=== PATIENT | female | born 1955 | race American Indian/Alaskan Native ===

== ENCOUNTER 2020-01-17 11:48 | Emergency (ER) | payer MEDICAID ==
[~2020-01-17] VITALS: Ht 167.6 cm; Wt 91.0 kg
[~2020-01-17 11:48] MED LIST: CELE-193 PO; DES150T PO; ESOM40CA PO; FENT1PAT11 TD; OXYB15TA PO; OXYC-658 PO; [UNRECOGNIZED DRUG - CODE] PO
[2020-01-17] MEDS ORDERED: CETI10CA PO (12:38)
[2020-01-17] MEDS ORDERED: PERM60CR19 TOP (12:38)
[2020-01-17] MEDS ORDERED: DIPH25CA83 PO (12:38)
[2020-01-17] MEDS ORDERED: TRIA15OI9 TOP (12:44)
[2020-01-17 13:03] VITALS: BP 170/86
== END 2020-01-17 13:05 | disposition home or self-care (01) ==
LOC: ER 11:48
DX: R21 Rash and other nonspecific skin eruption (principal); J44.9 Chronic obstructive pulmonary disease, unspecified; Z79.899 Other long term (current) drug therapy; Z88.0 Allergy status to penicillin; Z91.013 Allergy to seafood
CPT/HCPCS: 99283

== ENCOUNTER 2021-10-06 00:22 | Emergency (ER) | payer MEDICAID ==
[~2021-10-06] VITALS: Ht 167.6 cm; Wt 95.5 kg
[~2021-10-06 00:22] MED LIST changes: +CETI10CA PO; +DIPH25CA83 PO; +TRIA15OI9 TOP
[2021-10-06] MEDS ORDERED: metoclopramide 5 mg/ml inj IM ONE (01:30)
[2021-10-06] MEDS ORDERED: diphenhydrAMINE 50 mg/ml inj IM ONE (01:30)
[2021-10-06] MEDS ORDERED: oxyCODONE/APAP 5-325mg tablet PO ONE (01:30)
[2021-10-06] MEDS ORDERED: ketorolac trometh. 30mg/ml inj. IM ONE (01:30)
[2021-10-06] MEDS ORDERED: diazepam 5mg tablet PO ONE (01:30)
[2021-10-06 03:21] VITALS: BP 151/90
[2021-10-06] MEDS ORDERED: PER5325T PO (04:27)
== END 2021-10-06 05:35 | disposition home or self-care (01) ==
LOC: ER 00:23
DX: M54.50 Low back pain, unspecified (principal); R26.2 Difficulty in walking, not elsewhere classified; J44.9 Chronic obstructive pulmonary disease, unspecified; G89.29 Other chronic pain; Z88.0 Allergy status to penicillin; Z79.899 Other long term (current) drug therapy
CPT/HCPCS: 96372; 99284; J1200; J1885; J2765

== ENCOUNTER 2021-10-12 23:22 | Inpatient (IN) | payer MEDICAID ==
[~2021-10-12] VITALS: Ht 167.6 cm; Wt 80.0 kg
[~2021-10-12 23:22] MED LIST changes: +PER5325T PO
[2021-10-12] MEDS ORDERED: dexamethasone sod phosphate 10mg/ml inj IV STA (23:51)
[2021-10-13] VITALS (17 sets, daily range): BP systolic 124–160; BP diastolic 62–91
[2021-10-13] MEDS ORDERED: ipratropium/albuterol 3ml nebule NEB PRN (00:05)
[2021-10-13 00:46] LABS: ALBUMIN 2.5 G/DL (3.4-5.0); ANION GAP 12 (8-16); BILIRUBIN,TOTAL 1.2 MG/DL (0.1-1.0); BLOOD UREA NITROGEN 13 MG/DL (7-18); BUN/CREATININE RATIO 16.5 (6.6-38.0); CALCIUM 7.8 MG/DL (8.5-10.1); CHLORIDE 105 MMOL/L (99-107); CREATININE 0.79 MG/DL (0.40-0.90); GLUCOSE 195 MG/DL (70-104); POTASSIUM 3.7 MMOL/L (3.5-5.1); SODIUM 141 MMOL/L (135-145); TOTAL CARBON DIOXIDE 24.3 MMOL/L (24-32); TOTAL PROTEIN 6.7 G/DL (6.4-8.2); eGFR 73 ML/MIN
[2021-10-13 00:47] LABS: ALANINE AMINOTRANSFERASE 23 U/L (12-78); ALBUMIN/GLOBULIN RATIO 0.6 (1.1-1.5); ALKALINE PHOSPHATASE 108 IU/L (46-116); ASPARTATE AMINO TRANSFERASE 25 U/L (10-37)
[2021-10-13 01:03] LABS: BASOPHILS % (AUTO) 0.5 % (0-1); EOSINOPHILS % (AUTO) 0.5 % (0-6); LYMPHOCYTES # (AUTO) 0.7 X10'3 (1.1-4.8); LYMPHOCYTES % (AUTO) 8.4 % (21-51); MEAN CORPUSCULAR HGB CONC 29.5 g/dL (33.0-36.5); MEAN CORPUSCULAR VOLUME 57.5 FL (78-98); MEAN PLATELET VOLUME 8.1 FL (7.4-10.4); MONOCYTES # (AUTO) 0.6 X10'3 (0-0.9); MONOCYTES % (AUTO) 7.5 % (2-12); NEUTROPHILS # (AUTO) 6.5 X10'3 (1.8-7.7); NEUTROPHILS % (AUTO) 83.1 % (42-75); PLATELET COUNT 176 X10'3 (140-440); RED BLOOD COUNT 3.47 X10'6 (4.20-5.60); RED CELL DISTRIBUTION WIDTH 22.3 % (11.5-14.5); WHITE BLOOD COUNT 7.8 X10'3 (4.5-11.0)
[2021-10-13 01:08] LABS: HEMOGLOBIN 5.9 g/dl (12.0-16.0)
--- NOTE | 2021-10-13 01:22 | NUR ---
covid swab obtained and sent to lab before order Dc'd
[2021-10-13] MEDS ORDERED: pantoprazole IV 40 MG in dextrose 5%-water 100 ML IV ONE (02:18)
[2021-10-13] MEDS ORDERED: magnesium hydroxide 30ml (MOM) UD suspension PO PRN (02:30)
[2021-10-13] MEDS ORDERED: mag hydrox/Alum hydrox/simeth 30ml oral suspension PO PRN (02:30)
[2021-10-13] MEDS ORDERED: ondansetron 4mg rapidly disintigrating tab PO PRN (02:30)
[2021-10-13] MEDS ORDERED: acetaminophen 650mg rectal suppository RC PRN (02:30)
[2021-10-13] MEDS ORDERED: diphenhydrAMINE 50 mg/ml inj IV PRN (02:30)
[2021-10-13] MEDS ORDERED: bisacodyl 10mg suppository rectal RC PRN (02:30)
[2021-10-13] MEDS ORDERED: acetaminophen 325mg tablet PO PRN ×2 (02:30)
[2021-10-13 02:46] LABS: MAGNESIUM 1.7 MG/DL (1.5-2.4); PHOSPHORUS 2.5 MG/DL (2.3-4.5)
[2021-10-13 03:12] LABS: LIPASE < 50 U/L (73-393)
[2021-10-13 03:22] LABS: PLATELET ESTIMATE NORMAL
[2021-10-13 03:23] LABS: ANISOCYTOSIS 3+; LARGE PLATELETS FEW; POLYCHROMASIA 1+
--- NOTE | 2021-10-13 03:23 | NUR ---
two RN check at BS for blood - scanned unit per protocol. pt tolerating well. patient had a XL BM in the commode prior to infusion.
[2021-10-13 03:24] LABS: ELLIPTOCYTES FEW; MICROCYTOSIS 3+; TEAR DROP CELLS FEW
[2021-10-13 03:44] LABS: PARTIAL THROMBOPLASTIN TIME 22 SECONDS (22-32)
[2021-10-13] MEDS: normal saline 1000ml 1,000 ML IV SCH ×3 (04:41→22:30)
[2021-10-13] MEDS ORDERED: octreotide inj. 500 MCG in normal saline 100ml IV soln 100 ML IV SCH (05:15)
[2021-10-13] MEDS: HYDROcodone/acetaminophen 5mg/325mg tablet PO PRN ×3 (05:43→21:08)
[2021-10-13] MEDS: pantoprazole IV 40 MG in dextrose 5%-water 100 ML IV SCH ×4 (06:00→21:01)
--- NOTE | 2021-10-13 07:09 | NUR ---
Patient cleaned of urine incontinence and given Depends per request. Bedding and gown changed.
[2021-10-13] MEDS ORDERED: ATRIN PO (07:41)
[2021-10-13] MEDS ORDERED: ALBU17AE26 IH (07:41)
[2021-10-13] MEDS ORDERED: FLUT1BLS13 INH (07:41)
[2021-10-13] MEDS ORDERED: GABA-534 PO (07:41)
[2021-10-13] MEDS ORDERED: DIPH25CA83 PO (07:42)
[2021-10-13] MEDS: docusate sod 100mg capsule PO SCH ×2 (08:00→20:00)
[2021-10-13] MEDS ORDERED: levoFLOXACIN-Levaquin 750MG/D5 150 ML IV SCH (08:00)
[2021-10-13] MEDS ORDERED: magnesium 4gm in 100ml NS 100 ML IV PRN (08:45)
[2021-10-13] MEDS ORDERED: potassium Cl 40MEQ/1/2NS 520ml 520 ML IV PRN (08:45)
[2021-10-13] MEDS ORDERED: magnesium Cl slow-release 64mg tablet PO PRN (08:45)
[2021-10-13] MEDS ORDERED: potassium Cl 20 mEq SR tablet PO PRN ×2 (08:45)
[2021-10-13 10:25] LABS: HEMATOCRIT 24.1 % (35.0-45.0); HEMOGLOBIN 7.4 g/dl (12.0-16.0); MEAN CORPUSCULAR HEMOGLOBIN 19.6 PG (27.0-31.0); MEAN CORPUSCULAR HGB CONC 30.9 g/dL (33.0-36.5); MEAN CORPUSCULAR VOLUME 63.4 FL (78-98); MEAN PLATELET VOLUME 8.3 FL (7.4-10.4); PLATELET COUNT 183 X10'3 (140-440); RED BLOOD COUNT 3.79 X10'6 (4.20-5.60); WHITE BLOOD COUNT 5.8 X10'3 (4.5-11.0)
--- NOTE | 2021-10-13 11:38 | NUR ---
Pt. taken to GI lab for EGD.
[2021-10-13] MEDS: ondansetron/PF 4mg/2ml inj IV PRN (11:43)
[2021-10-13] MEDS ORDERED: ondansetron/PF 4mg/2ml inj ONE (11:43)
[2021-10-13] MEDS ORDERED: fentaNYL/PF 50MCG/1 ML 2ML syringe ONE (11:45)
[2021-10-13] MEDS ORDERED: MIDAZolam 1 MG/ML 5ML VIAL ONE (11:45)
[2021-10-13] MEDS ORDERED: LIDOcaine Viscous 15ml cup ONE (12:20)
[2021-10-13] MEDS ORDERED: fluconazole 100mg tablet PO ONE (13:14)
--- NOTE | 2021-10-13 13:49 | NUR ---
Pt. back on floor, ej relayed from report.
[2021-10-13 14:52] LABS: HEMATOCRIT 24.1 % (35.0-45.0); HEMOGLOBIN 7.4 g/dl (12.0-16.0); MEAN CORPUSCULAR HEMOGLOBIN 19.6 PG (27.0-31.0); MEAN CORPUSCULAR HGB CONC 30.6 g/dL (33.0-36.5); MEAN CORPUSCULAR VOLUME 63.8 FL (78-98); MEAN PLATELET VOLUME 8.2 FL (7.4-10.4); PLATELET COUNT 173 X10'3 (140-440); RED BLOOD COUNT 3.77 X10'6 (4.20-5.60); RED CELL DISTRIBUTION WIDTH 29.3 % (11.5-14.5); WHITE BLOOD COUNT 5.4 X10'3 (4.5-11.0)
--- NOTE | 2021-10-13 15:01 | NUR ---
PtLeticia montiel started tender, possibly infiltrated. Paged PICC RN for PIV placement
--- NOTE | 2021-10-13 15:25 | NUR ---
PAGER ID: [phone] MESSAGE: Cintia Lomeli [id number] Pt. has dry hacking cough. Can she have orders for tesselon pearls? cough syrup? thank you Zoie [phone]
--- NOTE | 2021-10-13 15:45 | NUR ---
PAGER ID: [phone] MESSAGE: Cintia Lomeli [id number] Pt. also had A1C pop up for 6.9- do you want hyperglycemia protocol? Zoie [phone]
--- NOTE | 2021-10-13 15:50 | NUR ---
DM Consult: Pt hx T2DM A1C 6.9% per EMR; appropriate per ADA guidelines. Addendum: 10/13/21 at [address] Amended: Links added.
[2021-10-13] MEDS ORDERED: dextrose 50%-water 50ml dispensing syringe IV PRN ×2 (16:00)
[2021-10-13] MEDS ORDERED: glucagon, human recombinant 1mg kit SUBCUT PRN (16:00)
[2021-10-13] MEDS ORDERED: dextrose ORAL solution 15 GM/59 ML bottle PO PRN ×2 (16:00)
[2021-10-13] MEDS ORDERED: MESSAGE TO PHARMACY PO ONE (16:00)
[2021-10-13] MEDS ORDERED: insulin Lispro (HumaLOG) vial - multi-dose SQ SCH (16:00)
[2021-10-13] MEDS: levoFLOXACIN-Levaquin 750MG/D5 150 ML IV SCH (16:55)
[2021-10-13] MEDS: benzonatate 100mg capsule PO PRN (16:59)
--- NOTE | 2021-10-13 18:18 | NUR ---
GAVE REPORT TO GABI CABRERA.
--- NOTE | 2021-10-13 18:28 | NUR ---
Patient in room MED 319. I have received report from DANA CABRERA and had the opportunity to ask questions and assume patient care.
--- NOTE | 2021-10-13 18:58 | NUR ---
PATIENT REFUSING INSULIN DESPITE VERBAL AND WRITTEN EDUCATION. WILL NOTIFY MD BLOOD GLUCOSE IS CURRENTLY 302
--- NOTE | 2021-10-13 19:17 | NUR ---
319B STEVIE WALKER-REFUSING INSULIN ADMINISTRATION DESPITE BLOOD GLUCSE OF 302-VERBAL AND WRITTEN INFORMATION GIVEN TO PATIENT. PLEASE CALL GABI [phone], THX
[2021-10-13 19:20] LABS: HEMATOCRIT 22.4 % (35.0-45.0); MEAN CORPUSCULAR HEMOGLOBIN 19.4 PG (27.0-31.0); MEAN CORPUSCULAR HGB CONC 30.5 g/dL (33.0-36.5); MEAN CORPUSCULAR VOLUME 63.8 FL (78-98); MEAN PLATELET VOLUME 8.2 FL (7.4-10.4); PLATELET COUNT 166 X10'3 (140-440); RED CELL DISTRIBUTION WIDTH 28.1 % (11.5-14.5); WHITE BLOOD COUNT 5.5 X10'3 (4.5-11.0)
[2021-10-13 19:27] LABS: HEMOGLOBIN 6.8 g/dl (12.0-16.0)
--- NOTE | 2021-10-13 19:28 | NUR ---
319B STEVIE WALKER-CRITICAL HEMOGLOBIN 6.8 JUST RECIEVED FROM LAB. PLEASE CALL GABI [phone] WITH ORDERS.
--- NOTE | 2021-10-13 19:57 | NUR ---
DR. HERRERA AT BEDSIDE IN PATIENT ROOM DISCUSSING DIABETIC EDUCATION, BLOOD GLUCOSE CONTROL, POSSIBLE ETOH USAGE/CIRRHOSIS, FATTY LIVER, AND HEMOGLOBIN LEVELS. NEEDS BLOOD TRANSFUSION. METFORMIN ORDERED , INSULIN DISCONTINUED. BLOOD GLUCOSE CHECKS BID INSTEAD OF ACHS. ONE UNIT BLOOD TO BE TRANSFERREDPER PROTOCOL. ROSI CABRERA
[2021-10-13] MEDS: K and/or MAG REPLACEMENT MC SCH (20:00)
[2021-10-13] MEDS: guaiFENesin 200 MG/10 ML oral syrup UD cup PO PRN (20:15)
[2021-10-13] MEDS ORDERED: insulin glargine (Lantus) pen - multi-dose SQ SCH (21:00)
[2021-10-13] MEDS: albuterol 2.5 MG/3 ML nebule NEB SCH (21:04)
[2021-10-13] MEDS: temazepam 15mg capsule PO PRN (21:08)
[2021-10-13] MEDS: diphenhydrAMINE 25mg capsule PO PRN (21:10)
[2021-10-14] VITALS (11 sets, daily range): BP systolic 132–169; BP diastolic 62–88
--- NOTE | 2021-10-14 00:19 | NUR ---
ORDERED CHEK BLOOD GLUCOSE BID, ORAL GLYCEMICS ORDERED START AM 10/14, CARB CONTROL DIET OK. ARANDA
[2021-10-14] MEDS: benzonatate 100mg capsule PO PRN ×4 (00:55→22:16)
[2021-10-14] MEDS: pantoprazole IV 40 MG in dextrose 5%-water 100 ML IV SCH ×4 (01:54→15:58)
[2021-10-14] MEDS: albuterol 2.5 MG/3 ML nebule NEB SCH (02:00)
[2021-10-14] MEDS ORDERED: albuterol 2.5 MG/3 ML nebule NEB SCH (02:00)
[2021-10-14] MEDS ORDERED: albuterol 2.5 MG/3 ML nebule NEB PRN (06:00)
[2021-10-14] MEDS: guaiFENesin 200 MG/10 ML oral syrup UD cup PO PRN ×2 (06:07→15:57)
[2021-10-14] MEDS: HYDROcodone/acetaminophen 5mg/325mg tablet PO PRN ×3 (06:11→22:20)
[2021-10-14] MEDS: metFORMIN 500mg tablet PO SCH ×3 (06:12→15:58)
[2021-10-14 06:20] LABS: BASOPHILS % (AUTO) 0.1 % (0-1); EOSINOPHILS % (AUTO) 0 % (0-6); HEMATOCRIT 26.3 % (35.0-45.0); HEMOGLOBIN 8.1 g/dl (12.0-16.0); LYMPHOCYTES # (AUTO) 0.7 X10'3 (1.1-4.8); MEAN CORPUSCULAR HEMOGLOBIN 20.6 PG (27.0-31.0); MEAN CORPUSCULAR HGB CONC 30.6 g/dL (33.0-36.5); MEAN CORPUSCULAR VOLUME 67.4 FL (78-98); MEAN PLATELET VOLUME 8.1 FL (7.4-10.4); MONOCYTES # (AUTO) 0.7 X10'3 (0-0.9); MONOCYTES % (AUTO) 10.9 % (2-12); NEUTROPHILS # (AUTO) 5.3 X10'3 (1.8-7.7); PLATELET COUNT 155 X10'3 (140-440); RED BLOOD COUNT 3.91 X10'6 (4.20-5.60); RED CELL DISTRIBUTION WIDTH 30.4 % (11.5-14.5); WHITE BLOOD COUNT 6.7 X10'3 (4.5-11.0)
[2021-10-14 06:42] LABS: ALANINE AMINOTRANSFERASE 25 U/L (12-78); ALBUMIN 2.6 G/DL (3.4-5.0); ALBUMIN/GLOBULIN RATIO 0.6 (1.1-1.5); ALKALINE PHOSPHATASE 101 IU/L (46-116); ANION GAP 9 (8-16); ASPARTATE AMINO TRANSFERASE 22 U/L (10-37); BILIRUBIN,TOTAL 1.1 MG/DL (0.1-1.0); BLOOD UREA NITROGEN 19 MG/DL (7-18); BUN/CREATININE RATIO 21.6 (6.6-38.0); CALCIUM 8.1 MG/DL (8.5-10.1); CHLORIDE 105 MMOL/L (99-107); CREATININE 0.88 MG/DL (0.40-0.90); GLUCOSE 232 MG/DL (70-104); PHOSPHORUS 1.9 MG/DL (2.3-4.5); POTASSIUM 4.5 MMOL/L (3.5-5.1); SODIUM 135 MMOL/L (135-145); TOTAL CARBON DIOXIDE 21.5 MMOL/L (24-32); TOTAL PROTEIN 6.8 G/DL (6.4-8.2); eGFR 65 ML/MIN
[2021-10-14 06:51] LABS: ANISOCYTOSIS 3+; MICROCYTOSIS 2+; PLATELET ESTIMATE NORMAL
[2021-10-14 06:52] LABS: ELLIPTOCYTES FEW; HYPOCHROMASIA 1+; POLYCHROMASIA 1+; SCHISTOCYTES FEW; TEAR DROP CELLS FEW
[2021-10-14] MEDS: docusate sod 100mg capsule PO SCH ×2 (08:00→19:22)
[2021-10-14] MEDS: K and/or MAG REPLACEMENT MC SCH ×2 (08:00→19:09)
[2021-10-14] MEDS: fluconazole 100mg tablet PO SCH (08:00)
[2021-10-14] MEDS: normal saline 1000ml 1,000 ML IV SCH (09:17)
[2021-10-14] MEDS: diphenhydrAMINE 25mg capsule PO PRN ×3 (09:17→22:18)
[2021-10-14 11:55] LABS: HEMATOCRIT 27.9 % (35.0-45.0); HEMOGLOBIN 8.6 g/dl (12.0-16.0); MEAN CORPUSCULAR HEMOGLOBIN 20.5 PG (27.0-31.0); MEAN CORPUSCULAR HGB CONC 30.7 g/dL (33.0-36.5); MEAN CORPUSCULAR VOLUME 66.8 FL (78-98); MEAN PLATELET VOLUME 8.1 FL (7.4-10.4); PLATELET COUNT 157 X10'3 (140-440); RED BLOOD COUNT 4.18 X10'6 (4.20-5.60); RED CELL DISTRIBUTION WIDTH 31.2 % (11.5-14.5); WHITE BLOOD COUNT 8.5 X10'3 (4.5-11.0)
[2021-10-14] MEDS ORDERED: potassium phosphate inj 30 MMOL in normal saline 500ml IV soln 500 ML IV ONE (12:05)
[2021-10-14] MEDS ORDERED: amLODIPine 5mg tablet PO ONE (15:15)
[2021-10-14] MEDS: levoFLOXACIN-Levaquin 750MG/D5 150 ML IV SCH (15:58)
[2021-10-14] MEDS: morphine 2 MG/ML inj. syringe IV PRN ×2 (16:15→20:26)
--- NOTE | 2021-10-14 18:24 | NUR ---
GAVE REPORT TO PRUDENCE RN
--- NOTE | 2021-10-14 18:47 | NUR ---
Patient in room MED 319. I have received report from DANA CABRERA and had the opportunity to ask questions and assume patient care.
[2021-10-14 18:59] LABS: CLARITY,URINE CLEAR (Clear); COLOR,URINE YELLOW (Yellow); GLUCOSE, URINE NEGATIVE (Neg); KETONES,URINE NEGATIVE (Neg); LEUKOCYTE ESTERASE ,URINE NEGATIVE (Neg); NITRITES, URINE NEGATIVE (Neg); OCCULT BLOOD,URINE NEGATIVE (Neg); PROTEIN,URINE NEGATIVE (Neg); UROBILINOGEN,URINE 0.2 E.U/dL (0.2-1.0)
[2021-10-14 19:02] LABS: UA COLLECTION TYPE NON-SPECIFIED
[2021-10-14 19:05] LABS: URINE AMPHETAMINE SCREEN POSITIVE (Neg); URINE BARBITUATE SCREEN NEGATIVE (Neg); URINE BENZODIAZEPINES SCREEN POSITIVE (Neg); URINE CANNABINOID SCREEN NEGATIVE (Neg); URINE COCAINE SCREEN NEGATIVE (Neg); URINE METHADONE SCREEN NEGATIVE (Neg); URINE OPIATE SCREEN POSITIVE (Neg); URINE PHENCYCLIDINE SCREEN NEGATIVE (Neg)
[2021-10-14] MEDS: pantoprazole 40mg Tablet.DR PO SCH (19:21)
[2021-10-14] MEDS: ondansetron/PF 4mg/2ml inj IV PRN (20:26)
--- NOTE | 2021-10-14 21:18 | NUR ---
Patient in room MED 319. I have received report from IDRIS CABRERA and had the opportunity to ask questions and assume patient care.
--- NOTE | 2021-10-14 21:31 | NUR ---
Problems reprioritized. Patient report given, questions answered & plan of care reviewed with GABI CABRERA.
[2021-10-14] MEDS: temazepam 15mg capsule PO PRN (22:16)
[2021-10-15 02:00] VITALS: BP 116/74
[2021-10-15] MEDS: benzonatate 100mg capsule PO PRN ×2 (04:54→11:28)
[2021-10-15] MEDS: diphenhydrAMINE 25mg capsule PO PRN (04:54)
[2021-10-15] MEDS: guaiFENesin 200 MG/10 ML oral syrup UD cup PO PRN (04:55)
[2021-10-15] MEDS: HYDROcodone/acetaminophen 5mg/325mg tablet PO PRN (04:55)
[2021-10-15 06:00] VITALS: BP 152/60
--- NOTE | 2021-10-15 06:31 | NUR ---
Problems reprioritized. Patient report given, questions answered & plan of care reviewed with JASPAL CABRERA.
--- NOTE | 2021-10-15 07:00 | NUR ---
Patient in room MED 319. I have received report from RICK ASHLEY, and had the opportunity to ask questions and assume patient care.
[2021-10-15 07:03] LABS: BASOPHILS % (AUTO) 0.2 % (0-1); EOSINOPHILS % (AUTO) 0.2 % (0-6); HEMOGLOBIN 8.2 g/dl (12.0-16.0); LYMPHOCYTES # (AUTO) 1.2 X10'3 (1.1-4.8); LYMPHOCYTES % (AUTO) 13.9 % (21-51); MEAN CORPUSCULAR HEMOGLOBIN 20.9 PG (27.0-31.0); MEAN CORPUSCULAR HGB CONC 31.4 g/dL (33.0-36.5); MEAN CORPUSCULAR VOLUME 66.6 FL (78-98); MEAN PLATELET VOLUME 8.1 FL (7.4-10.4); MONOCYTES # (AUTO) 0.8 X10'3 (0-0.9); MONOCYTES % (AUTO) 9.1 % (2-12); NEUTROPHILS # (AUTO) 6.6 X10'3 (1.8-7.7); NEUTROPHILS % (AUTO) 76.6 % (42-75); PLATELET COUNT 143 X10'3 (140-440); RED CELL DISTRIBUTION WIDTH 31.1 % (11.5-14.5); WHITE BLOOD COUNT 8.7 X10'3 (4.5-11.0)
[2021-10-15 07:22] LABS: ALANINE AMINOTRANSFERASE 35 U/L (12-78); ALBUMIN 2.7 G/DL (3.4-5.0); ALBUMIN/GLOBULIN RATIO 0.6 (1.1-1.5); ALKALINE PHOSPHATASE 115 IU/L (46-116); ANION GAP 11 (8-16); ASPARTATE AMINO TRANSFERASE 56 U/L (10-37); BILIRUBIN,TOTAL 1.1 MG/DL (0.1-1.0); BLOOD UREA NITROGEN 25 MG/DL (7-18); CHLORIDE 106 MMOL/L (99-107); GLUCOSE 182 MG/DL (70-104); MAGNESIUM 1.8 MG/DL (1.5-2.4); PHOSPHORUS 2.4 MG/DL (2.3-4.5); POTASSIUM 4.3 MMOL/L (3.5-5.1); SODIUM 139 MMOL/L (135-145); TOTAL CARBON DIOXIDE 21.9 MMOL/L (24-32); eGFR 56 ML/MIN
[2021-10-15 07:57] LABS: ANISOCYTOSIS 3+; ELLIPTOCYTES 1+; HYPOCHROMASIA 1+; MICROCYTOSIS 2+; PLATELET ESTIMATE NORMAL; TEAR DROP CELLS 2+
[2021-10-15 07:58] LABS: POLYCHROMASIA 1+; STOMATOCYTES FEW
[2021-10-15] MEDS: K and/or MAG REPLACEMENT MC SCH (08:00)
[2021-10-15] MEDS: pantoprazole 40mg Tablet.DR PO SCH (08:00)
[2021-10-15] MEDS: metFORMIN 500mg tablet PO SCH ×2 (08:00→11:28)
[2021-10-15] MEDS ORDERED: amLODIPine 5mg tablet PO SCH (08:00)
[2021-10-15] MEDS: docusate sod 100mg capsule PO SCH (08:00)
[2021-10-15] MEDS: fluconazole 100mg tablet PO SCH (08:01)
--- NOTE | 2021-10-15 08:52 | NUR ---
PAGE SENT PAGER ID: [phone] MESSAGE: 319B, STEVIE WALKER, POSITIVE NASAL MRSA. THANK YOU, JASPAL [phone]
[2021-10-15 10:00] VITALS: BP 151/64
--- NOTE | 2021-10-15 15:56 | NUR ---
PAGE SENT PAGER ID: [phone] MESSAGE: 319B, STEVIE WALKER, PT LEFT AMA. THANK YOU, JASPAL [phone]
--- NOTE | 2021-10-15 15:56 | NUR ---
PT LEFT AMA. PT SIGNED PAPER WORK, NOTIFIED, OCCURRENCE REPORT SUBMITTED.
== END 2021-10-15 15:30 | disposition left against medical advice (07) | DRG 241 ==
LOC: ER 23:22 → ED HOLD 10-13 02:33 → MED 3N 10-13 09:20
PROVIDERS: ADMIT Family Medicine; ATTEND Family Medicine
PROC: 0DB68ZX Excision of Stomach, Via Natural or Artificial Opening Endoscopic, Diagnostic (ICD-10-PCS; principal; 2021-10-13)
PROC: 30233N1 Transfusion of Nonautologous Red Blood Cells into Peripheral Vein, Percutaneous Approach (ICD-10-PCS; 2021-10-13)
DX: K26.0 Acute duodenal ulcer with hemorrhage (principal); I50.33 Acute on chronic diastolic (congestive) heart failure; B37.81 Candidal esophagitis; J18.9 Pneumonia, unspecified organism; K76.6 Portal hypertension; I11.0 Hypertensive heart disease with heart failure; J44.0 Chronic obstructive pulmonary disease with (acute) lower respiratory infection; Z20.822 Contact with and (suspected) exposure to COVID-19; K74.60 Unspecified cirrhosis of liver; D62 Acute posthemorrhagic anemia; M54.50 Low back pain, unspecified; Z53.29 Procedure and treatment not carried out because of patient's decision for other reasons; E11.9 Type 2 diabetes mellitus without complications; R16.1 Splenomegaly, not elsewhere classified; F17.200 Nicotine dependence, unspecified, uncomplicated; G89.4 Chronic pain syndrome; K29.70 Gastritis, unspecified, without bleeding; Z79.891 Long term (current) use of opiate analgesic; Z91.19 Patient's noncompliance with other medical treatment and regimen; Z88.8 Allergy status to other drugs, medicaments and biological substances; Z88.0 Allergy status to penicillin; Z91.013 Allergy to seafood; Z79.899 Other long term (current) drug therapy
CPT/HCPCS: 36415; 36430; 43239; 71045; 71250; 74176; 80053; 80305; 81003; 82948; 83036; 83690; 83735; 83880; 84100; 84484; 85008; 85025; 85027; 85610; 85730; 86885; 86900; 86901; 86920; 87081; 87635; 93005; 94640; 94760; 99152; 99291; A4620; C9113; C9803; G0378; J1100; J1815; J1956; J2250; J2270; J2354; J2405; J3010; J3490; J7030; J7040; J7060; P9016; Q0163

== ENCOUNTER 2025-10-20 20:52 | Emergency (ER) | payer MEDICARE, MEDICAID ==
[~2025-10-20] VITALS: Ht 167.6 cm; Wt 70.4 kg
[~2025-10-20 20:52] MED LIST changes: +ALBU18HF2 PO; -CELE-193 PO; -CETI10CA PO; -DES150T PO; -DIPH25CA83 PO; -ESOM40CA PO; -FENT1PAT11 TD; +FLUT1DIS10 IH; +GABA-535 PO; +OXYB-58 PO; -OXYB15TA PO; -OXYC-658 PO; -PER5325T PO; -TRIA15OI9 TOP; -[UNRECOGNIZED DRUG - CODE] PO
--- NOTE | 2025-10-21 00:31 | Physician Documentation ---
History of Present Illness ~ Chief Complaint: Itching Stated Complaint: BUG BITES Time Seen by MD: 00:25 OK to notify your PCP?: Yes Primary Medical Doctor: BRENNON Source: patient, RN/, RN notes reviewed, old records Mode of Arrival: POV Exam Limitations: no limitations HPI This patient denies any drug abuse. She has multiple faye on her body from either skin popping or scratching. Patient states that she has been bugs. She has a picture showing lots of black lines and bugs however I do not see any bugs on the picture. She states her all over her back there are no signs of any bugs on her. Patient is requesting a ride home. She is more concerned about transportation rather than her medical complaints. She is now here for evaluation and care Medication Reconciliation Allergies: Coded Allergies: Penicillins (Verified Allergy, Severe, ANAPHYLACTIC, 07/16/23) shellfish derived (Verified Allergy, Severe, ANAPHYLAXIS, 07/16/23) Opioids - Morphine Analogues (Verified Adverse Reaction, Mild, N/V NEEDS BENADRYL PRE-TREATMENT, 07/16/23) meperidine (Verified Adverse Reaction, Mild, N/V, 07/16/23) Uncoded Allergies: seafood (Allergy, Unknown, 05/16/23) all seafood Scheduled Fluticasone/Salmeterol (Advair 250-50 Diskus), 1 PUFF IH BID, (Reported) Gabapentin (Gabapentin), 1 CAP PO TID, (Reported) Oxybutynin Chloride (Ditropan Xl), 1 TAB PO DAILY, (Reported) Permethrin 5% Cream* (Elimite 5% Cream*), 1 APPLIC TOP ONCE Scheduled PRN Albuterol Sulfate (Ventolin Hfa), 2 PUFFS PO Q4H PRN for SOB or wheezing, (Reported) Hydroxyzine Hcl* (Atarax*), 1 TAB PO Q8H PRN for ITCHING Past Medical History Past Medical History: Asthma, COPD, *GI/HEPATOBILIARY*, Cirrohsis, GI Bleed, Chronic Back Pain Past Surgical History: noncontributory Patient History: Patient reports no known family medical history. Alcohol Use: None Drug Use: methamphetamine Occupation: unemployed Review of Systems All Other Systems at this time: Reviewed and Negative Physical Exam Vital Signs: RN Vital Signs have been reviewed: Yes, Temperature: 98.7, Source: Oral, Heart Rate: 99, Respiratory Rate: 20, BP: 145/71, Pulse Oximetry: 99, Weight: 70.400 Physical Exam General: The patient is well developed, well nourished, nontoxic appearing and is in no acute distress. Anxious Skin: [place], warm and dry with no rashes. HEENT: Head was normocephalic and atraumatic. Eyes - pupils equal, round, reactive to light and accommodation. Extraocular movements were intact. Conjun ctivae were nonicteric. The mouth and oropharynx were clear with moist mucous membranes. Neck: Supple and nontender. Chest: Clear to auscultation bilaterally without wheezes, rales or rhonchi. Heart: Rate regular and rhythmic. S1, S2. No murmurs. Abdomen: Soft, nontender and nondistended. Positive bowel sounds. Extremities: No cyanosis, clubbing or edema. The patient moves all extremities. Pulses were equal and symmetric. No signs of bedbugs lice Psychologic: The patient was oriented to person, place and time. Progress Results/Orders Reviewed/noted all lab results: Yes Results/Orders Completed Orders - ELIJAH BUCK MD Hydroxyzine Tablet (Atarax Tablet) (10/21/25 00:40) Vital Signs 10/20/25 21:49 Temp 98.7 Pulse 99 Resp 20 B/P (MAP) 145/71 Pulse Ox 99 Laboratory Tests Test 10/20/25 21:58 Glucometer 463 *H Re-Evaluation Re-Evaluation : Re-Evaluation: Unchanged Progress Patient was seen and examined. Patient is given reassurance. Patient has a history of methamphetamine abuse and skin damage to suggest prior complications due to methamphetamine. Patient is concerned about itching as well as bedbugs or lice. I did not see any present she states she put some chemicals in her house to take care of the bugs. I did not see any ones present at this time patient will be given Elimite and discharged home. She denies any current methamphetamine abuse. As far as itching she will be given hydroxyzine as well Medical Decision Making Additional information obtaine: old records Findings Patient has no signs of any bugs but was treated may be having sequelae of chronic methamphetamine abuse which the patient denies Differential Dx:Considerations: Include: Atopic dermatitis, Candidiasis, Contact dermatitis, Drug reaction, Pediculosis, Pityriasis rosea, Psoriaisis, RMSF, Scabies, Tinea, Urticaria, Varicella, Viral exanthema, Other Departure Disposition: HOME / SELF CARE / HOMELESS Impression: Primary Impression: Itching Condition: Stable Discharge Instructions: Itching Referrals: NO PRIMARY CARE PROVIDER (PCP) Prescriptions Hydroxyzine Hcl* (Atarax*) 25 Mg Tablet 1 TAB PO Q8H PRN for ITCHING for 7 Days, #20 TAB Prov: ELIJAH BUCK MD 10/21/25 Permethrin 5% Cream* (Elimite 5% Cream*) 60 Gm Cream.gm. 1 APPLIC TOP ONCE, #60 GM massage into skin from head to soles of feet one time, leave on for 8-14 hours then remove by thorough washing Prov: ELIJAH BUCK MD 10/21/25 Education Educated: Patient Educated regarding: diagnosis Signature Scribe Signature: No scribed Attestation: The note accurately reflects work and decisions made by me.Elijah Buck MD 10/21/25 00:34 ELIJAH BUCK MD Oct 21, 2025 00:31
[2025-10-21] MEDS ORDERED: PERM60CR27 TOP (00:40)
[2025-10-21] MEDS ORDERED: HYDR-3686 PO (00:40)
[2025-10-21 00:55] VITALS: BP 140/70; PULSE 99; RESP 18; TEMP 98.6; O2SAT 99
== END 2025-10-21 00:57 | disposition home or self-care (01) ==
LOC: ER 20:52
DX: L29.9 Pruritus, unspecified (principal); G89.29 Other chronic pain; J44.9 Chronic obstructive pulmonary disease, unspecified; F15.90 Other stimulant use, unspecified, uncomplicated; Z88.0 Allergy status to penicillin; Z91.013 Allergy to seafood; Z88.5 Allergy status to narcotic agent; Z88.8 Allergy status to other drugs, medicaments and biological substances; Z79.899 Other long term (current) drug therapy; Z79.52 Long term (current) use of systemic steroids; Z56.0 Unemployment, unspecified
CPT/HCPCS: 82948; 99283; Q0177